=== PATIENT | female | born 1950 | race Caucasian/White ===

== ENCOUNTER 2019-10-21 08:39 | Day surgery (SDC) | payer MEDICARE, BC ==
[~2019-10-21] VITALS: Ht 160 cm; Wt 77.6 kg
[2019-10-21] VITALS (14 sets, daily range): BP systolic 108–151; BP diastolic 60–95
[2019-10-21] MEDS ORDERED: normal saline 1000ml 1,000 ML IV PRN (09:00)
[2019-10-21 09:54] LABS: BASOPHILS % (AUTO) 0.3 % (0-1); EOSINOPHILS # (AUTO) 0.1 X10'3 (0-0.9); EOSINOPHILS % (AUTO) 2.2 % (0-6); HEMATOCRIT 43.3 % (35.0-45.0); HEMOGLOBIN 14.6 g/dl (12.0-16.0); LYMPHOCYTES # (AUTO) 1.7 X10'3 (1.1-4.8); LYMPHOCYTES % (AUTO) 28.4 % (21-51); MEAN CORPUSCULAR HGB CONC 33.6 g/dL (33.0-36.5); MEAN CORPUSCULAR VOLUME 95.4 FL (78-98); MEAN PLATELET VOLUME 7.1 FL (7.4-10.4); MONOCYTES # (AUTO) 0.4 X10'3 (0-0.9); MONOCYTES % (AUTO) 7.1 % (2-12); NEUTROPHILS # (AUTO) 3.7 X10'3 (1.8-7.7); PLATELET COUNT 216 X10'3 (140-440); RED BLOOD COUNT 4.54 X10'6 (4.20-5.60); RED CELL DISTRIBUTION WIDTH 12.6 % (11.5-14.5)
[2019-10-21] MEDS ORDERED: CHOL400T57 PO (09:54)
[2019-10-21] MEDS ORDERED: ANAS1TAB10 PO (09:54)
[2019-10-21] MEDS ORDERED: FLUO20CA39 PO (09:54)
[2019-10-21] MEDS ORDERED: FOLI0.4T2 PO (09:54)
[2019-10-21] MEDS ORDERED: CANA300T PO (09:54)
[2019-10-21] MEDS ORDERED: ROSU20TA2 PO (09:54)
[2019-10-21] MEDS ORDERED: VITC500T PO (09:54)
[2019-10-21] MEDS ORDERED: SITA1TBM7 PO (09:54)
[2019-10-21] MEDS ORDERED: ASPI-83 PO (09:54)
[2019-10-21] MEDS ORDERED: POTA10TA19 PO (09:54)
[2019-10-21] MEDS ORDERED: ESOM20CA PO (09:54)
[2019-10-21] MEDS ORDERED: CALC200T3 PO (09:54)
[2019-10-21] MEDS ORDERED: OMEG-79 PO (09:54)
[2019-10-21] MEDS ORDERED: LUTE1CAP5 PO (09:55)
[2019-10-21] MEDS ORDERED: fentaNYL/PF 50MCG/1 ML 2ML syringe ONE (10:16)
[2019-10-21] MEDS ORDERED: midazolam 2 mg/2 ml injection ONE (10:16)
[2019-10-21] MEDS ORDERED: sodium chloride 0.45% 1,000 ML IV SCH (11:13)
== END 2019-10-21 14:05 | disposition home or self-care (01) ==
LOC: SSTAY O 08:39
PROVIDERS: ATTEND Radiology Diagnostic Radiology
DX: R91.8 Other nonspecific abnormal finding of lung field (principal); C34.12 Malignant neoplasm of upper lobe, left bronchus or lung; E11.9 Type 2 diabetes mellitus without complications; J44.9 Chronic obstructive pulmonary disease, unspecified; Z85.3 Personal history of malignant neoplasm of breast; Z98.1 Arthrodesis status; Z72.89 Other problems related to lifestyle; Z88.0 Allergy status to penicillin; Z11.59 Encounter for screening for other viral diseases
CPT/HCPCS: 32405; 36415; 71045; 77012; 85025; 88341; 88342; J2250; J3010; J7030; U0003; 88305

== ENCOUNTER 2019-12-01 10:48 | Day surgery (SDC) | payer MEDICARE, BC ==
[~2019-12-01] VITALS: Ht 160 cm; Wt 80.0 kg
[~2019-12-01 10:48] MED LIST: ANAS1TAB10 PO; ASPI-83 PO; CALC200T3 PO; CANA300T PO; CHOL400T57 PO; ESOM20CA PO; FLUO20CA39 PO; FOLI0.4T2 PO; LUTE1CAP5 PO; OMEG-79 PO; POTA10TA19 PO; ROSU20TA2 PO; SITA1TBM7 PO; VITC500T PO
[2019-12-01 11:00] VITALS: BP 123/75
[2019-12-01] MEDS ORDERED: normal saline 1000ml 1,000 ML IV SCH ×2 (11:20→15:06)
[2019-12-01] MEDS ORDERED: ceFAZolin 1GM/D5W- ADD-VANTAGE 50 ML IV ONE (13:20)
[2019-12-01] MEDS ORDERED: LIDOcaine 1%/PF 5ML 10 MG/ML VIAL ONE (13:35)
[2019-12-01] MEDS ORDERED: heparin sodium, porcine/PF 100unit/ml 5ML syringe ONE (13:35)
[2019-12-01] MEDS ORDERED: midazolam 2 mg/2 ml injection ONE (13:35)
[2019-12-01] MEDS ORDERED: fentaNYL/PF 50MCG/1 ML 2ML syringe ONE (13:36)
[2019-12-01] MEDS ORDERED: clindamycin 600mg/D5W 50ml 50 ML IV ONE (13:45)
[2019-12-01 15:00] VITALS: BP 136/81
[2019-12-01 15:15] VITALS: BP 117/69
[2019-12-01 15:30] VITALS: BP 116/67
[2019-12-01 15:45] VITALS: BP 122/63
[2019-12-01 16:00] VITALS: BP 111/64
== END 2019-12-01 16:15 | disposition home or self-care (01) ==
LOC: SSTAY O 10:48
PROVIDERS: ATTEND Radiology Vascular & Interventional Radiology
DX: C34.12 Malignant neoplasm of upper lobe, left bronchus or lung (principal); K21.9 Gastro-esophageal reflux disease without esophagitis; E78.5 Hyperlipidemia, unspecified; M06.9 Rheumatoid arthritis, unspecified; Z90.11 Acquired absence of right breast and nipple; Z79.82 Long term (current) use of aspirin; Z85.3 Personal history of malignant neoplasm of breast; Z88.0 Allergy status to penicillin; E11.9 Type 2 diabetes mellitus without complications; Z72.89 Other problems related to lifestyle; Z79.899 Other long term (current) drug therapy
CPT/HCPCS: 36561; 76937; 77001; 82948; C1769; C1788; C1894; J1642; J2250; J3010